=== PATIENT | male | born 1980 | race Two or more races ===

== ENCOUNTER 2020-12-12 15:57 | Emergency (ER) | payer SELFPAY ==
[~2020-12-12] VITALS: Ht 182.9 cm; Wt 100.0 kg
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
--- NOTE | 2020-12-12 17:02 | NUR ---
ERPA AT BEDSIDE FOR EVALUATION.
[2020-12-12] MEDS ORDERED: LIDOCAINE-MPF 1%, 5ML ONE (17:20)
[2020-12-12] MEDS ORDERED: DIPH,PERTUSS(ACELL),TET VAC/PF 0.5 ML IM-VACC ONE ×2 (17:21→17:30)
[2020-12-12] MEDS ORDERED: LIDOCAINE-MPF 1%, 5ML INFIL ONE (17:30)
--- NOTE | 2020-12-12 17:42 | NUR ---
PATIENT TO CT SCAN.
--- NOTE | 2020-12-12 17:52 | NUR ---
PATIENT BACK FROM CT, TdaP VACCINE ADMINISTERED.
--- NOTE | 2020-12-12 18:28 | NUR ---
LACERATION ABOVE RIGHT EYE IRRIGATED, PATIENT TOLERATED WELL.
--- NOTE | 2020-12-12 18:47 | NUR ---
REPORT RECIEVED FROM SILVIA BRAUN
--- NOTE | 2020-12-12 18:52 | NUR ---
SLPINT COMPLETED. PT TOLERATED WELL. AWAITING DC PAPERS.
[2020-12-12 18:59] VITALS: BP 132/102
== END 2020-12-12 19:01 ==
LOC: ED 16:30
DX: S62.635A Displaced fracture of distal phalanx of left ring finger, initial encounter for closed fracture (principal); S01.111A Laceration without foreign body of right eyelid and periocular area, initial encounter; W01.0XXA Fall on same level from slipping, tripping and stumbling without subsequent striking against object, initial encounter; Y93.02 Activity, running; Y92.410 Unspecified street and highway as the place of occurrence of the external cause; Y99.8 Other external cause status
CPT/HCPCS: 12011; 70450; 72125; 90471; 90715